=== PATIENT | male | born 1975 | race Caucasian/White ===

== ENCOUNTER 2020-08-29 17:15 | Emergency (ER) | payer OTHER ==
[2020-08-29 19:40] LABS: BASOPHIL 0.5 % (0-2); EOSINOPHIL 1.9 % (0-5); HCT 47.4 % (42.0-52.0); HGB 15.9 g/dl (13.2-18.0); LYMPHOCYTE 12.3 % (15-48); MCH 30.4 pg (25.0-31.0); MCHC 33.5 g/dL (32.0-36.0); MCV 90.6 fL (78.0-100.0); MPV 8.7 fL (6.0-9.5); NEUTROPHIL 78.8 % (41-80); NRBC 0; PLT 250 K/uL (150-400); RBC 5.23 M/uL (4.70-6.00); RDW 13.4 % (11.5-14.0); WBC 11.6 K/uL (4.0-10.5)
[2020-08-29 20:03] LABS: BILIRUBIN - TOTAL 0.3 mg/dL (0.2-1.0); BUN/CREAT RATIO (CALC) 22.9 RATIO; CREATININE 0.83 mg/dL (0.67-1.17); GLOBULIN (CALCULATION) 3.6 g/dL; TOTAL PROTEIN 7.6 g/dL (6.4-8.2)
== END 2020-08-29 21:50 | disposition home or self-care (01) ==
LOC: FER 17:15
PROVIDERS: Nurse Practitioner Family
DX: S20.213A Contusion of bilateral front wall of thorax, initial encounter (principal); F17.290 Nicotine dependence, other tobacco product, uncomplicated; Z91.013 Allergy to seafood; V49.40XA Driver injured in collision with unspecified motor vehicles in traffic accident, initial encounter; Y92.410 Unspecified street and highway as the place of occurrence of the external cause
CPT/HCPCS: 36415; 71260; 80053; 85025; J7030; Q9967